=== PATIENT | male | born 1945 | race Hispanic/Latino ===

== ENCOUNTER 2016-09-21 15:28 | Emergency (ER) | payer MEDICARE ==
[2016-09-21 15:42] VITALS: TEMP 98.1
[2016-09-21 15:45] VITALS: BMI 24.2
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
[2016-09-21 16:31] VITALS: RESP 18; O2SAT 98
[2016-09-21] MEDS: TDAP Vaccine 0.5 mL Syr IM ONE ×2 (16:40→19:37)
[2016-09-21 16:41] LABS: ADD MANUAL DIFF? NO
[2016-09-21 16:47] LABS: BASO # 0.06 K/mm3 (0.0-2.0); BASO % 0.6 % (0.0-3.0); EOS # 0.1 (0.0-0.7); EOS % 1.5 % (1.5-5.0); GRAN # 7.35 (1.4-6.5); GRAN % 77.7 % (50.0-68.0); HEMATOCRIT 38.2 % (42.0-52.0); LYMPH # 1.3 (1.2-3.4); LYMPH % 13.5 % (22.0-35.0); MEAN CELL VOLUME 85.5 fL (80.0-105.0); MEAN CORPUSCULAR HEMOGLOBIN 30.2 pg (25.0-35.0); MEAN CORPUSCULAR HGB CONC 35.3 g/dl (31.0-37.0); MEAN PLATELET VOLUME 9.2 fl (7.0-11.0); MONO # 0.6 (0.1-0.6); MONO % 6.7 % (1.0-6.0); PLATELET COUNT 309 10^3/uL (120.0-450.0); RED CELL DISTRIBUTION WIDTH 12.4 % (11.5-14.5); WHITE BLOOD COUNT 9.5 10^3/ul (4.5-11.0)
[2016-09-21 16:57] LABS: ALB/GLOB RATIO 1.4 (1.1-1.8); ALKALINE PHOSPHATASE 77 U/L (38-133); ALT/SGPT 38 U/L (7-56); AST/SGOT 33 U/L (15-59); BILIRUBIN,TOTAL 0.7 mg/dL (0.2-1.3); BLOOD UREA NITROGEN 11 mg/dL (7-21); CALCIUM 9.6 mg/dL (8.4-10.5); CARBON DIOXIDE 26 mmol/L (21-33); CHLORIDE 104 mmol/L (98-107); GFR AFRICAN-AMERICAN > 60; GLUCOSE,RANDOM 103 mg/dL (70-110); POTASSIUM 4.3 mmol/L (3.6-5.0); SODIUM 143 mmol/L (132-148); TOTAL PROTEIN 7.7 g/dL (5.8-8.3)
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
[2016-09-21 18:23] VITALS: BP 132/71; PULSE 98
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
--- NOTE | 2016-09-22 12:08 | CARD ---
APPROVED REPORT EKG Measurement Heart [id number] <Conclusion> Sinus tachycardia Otherwise normal ECG
== END 2016-09-21 23:15 | disposition home or self-care (01) ==
LOC: ED 15:28
DX: F99 Mental disorder, not otherwise specified (principal); Z23 Encounter for immunization
CPT/HCPCS: 70450; 71010; 80053; 85025; 90471; 90715; 93005; 99285; G0480